=== PATIENT | female | born 2000 | race Caucasian/White ===

== ENCOUNTER 2022-01-19 15:09 | Outpatient (REF) | payer SELFPAY ==
[2022-01-21 11:46] LABS: Hemoglobin S Screen Negative (Negative)
== END 2022-01-19 15:10 | disposition home or self-care (01) ==
LOC: LBN 15:09
PROVIDERS: Visit Provider Nurse Practitioner Family
DX: Z13.0 Encounter for screening for diseases of the blood and blood-forming organs and certain disorders involving the immune mechanism (principal)
CPT/HCPCS: 85660